=== PATIENT | male | born 1960 | race Caucasian/White ===

== ENCOUNTER 2017-06-03 06:24 | Day surgery (SDC) | payer BC ==
[2017-06-03] MEDS ORDERED: FAMOTIDINE 20 MG TAB PO ONE (06:28)
[2017-06-03] MEDS ORDERED: NS 1,000 ML IV ONE (06:28)
[2017-06-03] MEDS ORDERED: ASPIRIN EC 325 MG TAB PO ONE (06:28)
[2017-06-03] MEDS ORDERED: DIAZEPAM 5 MG TAB PO ONE (06:28)
[2017-06-03] MEDS ORDERED: diphenhydrAMINE 25 MG CAP PO ONE (06:28)
--- NOTE | 2017-06-03 06:41 | CPEKG ---
Heart Rate: 64 RR Interval: 938 P-R Interval: 212 QRSD Interval: 96 QT Interval: 420 QTC Interval: 434 P Milford: 50 QRS Milford: 14 T Wave Milford: 26 EKG Severity - ABNORMAL ECG - EKG Impression: SINUS RHYTHM EKG Impression: FIRST DEGREE AV BLOCK Electronically Signed By: Aris Monge 03-Jun-2017 12:21:48
[2017-06-03 06:57] LABS: % IMMATURE GRANULYOCYTES 0.3 % (0.0-1.1); ABSOLUTE IMMATURE GRANULOCYTES 0.02 10^3/uL (0.00-0.10); ADD DIFF? NO; ADD MORPH? NO; ADD SCAN? NO; ATYPICAL LYMPHOCYTE FLAG 10 (0-99); FRAGMENT RBC FLAG 0 (0-99); HEMATOCRIT 44.5 % (40.0-51.0); HEMOGLOBIN 15.1 g/dL (13.7-17.5); LEFT SHIFT FLG 0 (0-99); LIPEMIA HEMOLYSIS FLAG 90 (0-99); MEAN CELL HEMOGLOBIN 31.2 pg (27.9-34.1); MEAN CELL HEMOGLOBIN CONCENTR. 33.9 g/dL (32.4-36.7); MEAN CELL VOLUME 91.9 fL (81.5-99.8); MEAN PLATELET VOLUME 9.5 fL (8.7-11.7); PLATELET CLUMPS FLAG 0 (0-99); PLATELET COUNT 187 10^3/uL (150-400); RED BLOOD CELL COUNT 4.84 10^6/uL (4.40-6.38); RED CELL DISTRIBUTION WIDTH 12.3 % (11.5-15.2)
[2017-06-03 07:07] LABS: INR 0.95 (0.83-1.16); PROTIME(PATIENT) 12.6 SEC (12.0-15.0)
[2017-06-03 07:15] LABS: ANION GAP 13 mEq/L (8-16); CALCIUM 9.4 mg/dL (8.5-10.4); CARBON DIOXIDE 22 mEq/l (22-31); CHLORIDE 107 mEq/L (97-110); CHOLESTEROL 141 mg/dL (140-220); CHOLESTEROL/HDL RATIO 4.55 RATIO (1.00-4.97); CREATININE 0.9 mg/dL (0.7-1.3); GLOMERULAR FILTRATION RATE > 60; GLUCOSE 87 mg/dL (70-100); HIGH DENSITY LIPOPROTEIN 31 mg/dL (40-65); MAGNESIUM 1.9 mg/dL (1.6-2.3); NON-HIGH DENSITY LIPOPROTEIN 110 mg/dL (90-129); SODIUM 142 mEq/L (134-144)
[2017-06-03 07:16] LABS: TRIGLYCERIDE 459 mg/dL (40-150)
[2017-06-03] MEDS ORDERED: LIDOCAINE 1% 300 MG/30 ML SDV ONE (07:26)
[2017-06-03] MEDS ORDERED: fentaNYL 100 MCG/2 ML INJ ONE ×3 (07:27→09:25)
[2017-06-03] MEDS ORDERED: MIDAZOLAM 2 MG/2 ML VIAL ONE ×5 (07:28→09:27)
[2017-06-03] MEDS ORDERED: IOPAMIDOL (ISOVUE-370) 150 ML BTL IV ONE (07:28)
[2017-06-03] MEDS ORDERED: ADENOSINE 90 MG/30 ML VIAL IV ONE (09:15)
[2017-06-03] MEDS ORDERED: NITROGLYCERIN 1,500 MCG/15 ML VIAL MISC ONE (09:17)
[2017-06-03] MEDS ORDERED: HEPARIN 10,000 UNIT/10 ML MDV ONE (09:20)
[2017-06-03] MEDS ORDERED: BIVALIRUDIN 250 MG/5 ML VIAL IV ONE (09:20)
[2017-06-03] MEDS ORDERED: OXYCODONE/APAP 5/325 TAB PO PRN (09:26)
[2017-06-03] MEDS ORDERED: NITROGLYCERIN 0.4 MG BTL SL PRN (09:26)
[2017-06-03] MEDS ORDERED: ONDANSETRON 4 MG/2 ML VIAL IVP PRN (09:26)
[2017-06-03] MEDS ORDERED: ATROPINE SULFATE 1 MG/10 ML SYR IVP PRN (09:26)
[2017-06-03] MEDS ORDERED: HYDROCODONE/APAP 5/325 TAB PO PRN (09:26)
--- NOTE | 2017-06-03 10:38 | CPIP ---
[f rep st] INVASIVE CARDIAC PROCEDURE DATE OF PROCEDURE: 06/03/2017 INDICATIONS: The patient is a pleasant 57-year-old gentleman with a known history of coronary arter y disease with multiple PCIs to the LAD and residual 60% to 70% stenosis in the proximal right coron wilberto artery who presented to the office last week with complaints of shortness of breath, dyspnea on exertion, exertional intolerance and fatigue. He states these symptoms were identical to those prio r to his initial percutaneous coronary intervention to the LAD in 2007. He subsequently underwent a n exercise nuclear stress test. There was evidence of anterior ischemia. In the setting of having symptoms similar to his initial PCI, known history of in-stent stenosis to the LAD coupled with abno rmal nuclear stress test, the decision was made to pursue diagnostic left heart catheterization. PROCEDURE: After informed consent was obtained, the patient was brought to the cardiac catheterizat ion lab where he was prepped and draped in a sterile fashion. Please note, his last dose of Pradaxa was on Saturday evening, May 31, 2017. Using the modified Seldinger technique, a 6-Chadian catheter was placed into the right common femoral artery without complications. A JL5 catheter was used to t brunilda images of the left coronary anatomy in multiple projections. JL5 catheter was exchanged over a guidewire for a JR4 catheter. JR4 catheter was used to take images of the right coronary artery in multiple projections. JR4 catheter was removed over a guidewire for angled pigtail catheter. Angle d pigtail catheter was used to cross the aortic valve. LVEDP was assessed, aortic valve gradient wa s assessed, left ventriculogram was performed. Angled pigtail catheter was removed over a guidewire without complications. Imaging of the right co mmon femoral artery site demonstrated appropriate placement of the 6-Chadian sheath above the bifurca tion without evidence of trauma to the vessel. FINDINGS: 1. Left main normal size and caliber. There is no evidence of coronary disease in the left main. The left main trifurcates into a left circumflex coronary artery, ramus artery, and left anterior de scending. 2. Left anterior descending demonstrates stenting from the proximal LAD to the distal mid LAD. The re is some mild in-stent stenosis of approximately 10%. There is no flow-limiting stenosis within t he LAD. 3. Left circumflex demonstrates mild luminal irregularities. 4. Patel branch, mild lumen irregularities. No flow-limiting disease. 5. The right coronary artery is a large-caliber dominant vessel that bifurcates into PDA and PLV br anch. There is a 60% to 70% stenosis within the proximal to mid right coronary artery. There is so me 50% to 60% stenosis distally in the PDA branch. 6. Left ventriculogram demonstrates LVEF of 50% to 55%. LVEDP 21 mmHg. Aortic valve gradient: No ne. CONCLUSION: 1. Patent stents to the left anterior descending with minimal in-stent stenosis of approximately 10 %. 2. Mild luminal irregularities within the circumflex and ramus branch. 3. Dominant right coronary artery with 60% to 70% stenosis in the proximal segment of the vessel. The patient did undergo FFR with Dr. Lantigua with a value of 0.94 demonstrating no hemodynamic sign ificance and not indication for percutaneous coronary intervention. 4. Elevated left ventricular end-diastolic pressure at 21 mmHg. PLAN: 1. Patient will be brought to recovery. 2. Patient will continue aggressive medical management of coronary artery disease. 3. Patient is scheduled for back surgery this week with Dr. Gutierrez. He will remain off Prad axa until after his surgery. He will restart Pradaxa when hemodynamically stable from Dr. Jorge mariscal's perspective. /[id number]/MODL
--- NOTE | 2017-06-03 13:23 | CPIP ---
[f rep st] INVASIVE CARDIAC PROCEDURE DATE OF PROCEDURE: 06/03/2017 PROCEDURE PERFORMED: Fractional flow reserve measurement of the RCA. INDICATIONS FOR PROCEDURE: The patient is a 57-year-old male with a history of CAD and prior PCI of the LAD. He underwent a nuclear stress test as part of his preoperative evaluation for back surger y. That study suggested basal anterior wall ischemia. On that basis he was scheduled for a cardiac catheterization which was performed by Dr. Erick Birmingham. His angiography demonstrated that the previ ously stented LAD was widely patent. There was no significant stenosis in the circumflex territory. The right coronary artery had an angiographically moderate lesion of at least 50% in its midportio n. Therefore, Dr. Birmingham requested that I perform fractional flow reserve measurement to assess the s ignificance of this lesion. PROCEDURE IN DETAIL: The patient received 5000 units of intravenous heparin. A 6-Nauruan JR4 guide catheter was advanced to the right coronary ostium. The flow wire was advanced to the tip of the gu idewire and calibration was performed. The guide catheter was engaged into the right coronary and t he flow wire was advanced into the distal right coronary artery. Intravenous adenosine was administ ered per protocol. At 2 minutes, the fractional flow reserve was normal at 0.95. COMPLICATIONS: None. CONCLUSIONS: Normal fractional flow reserve measurement in the right coronary artery. /[id number]/MODL
== END 2017-06-03 16:56 | disposition home or self-care (01) ==
LOC: FCATH 06:24
PROVIDERS: ATTEND Internal Medicine Cardiovascular Disease
DX: I25.10 Atherosclerotic heart disease of native coronary artery without angina pectoris (principal); R06.09 Other forms of dyspnea; R53.83 Other fatigue; R94.39 Abnormal result of other cardiovascular function study; T82.855A Stenosis of coronary artery stent, initial encounter; G47.33 Obstructive sleep apnea (adult) (pediatric); I48.0 Paroxysmal atrial fibrillation; I10 Essential (primary) hypertension; I77.810 Thoracic aortic ectasia; E78.5 Hyperlipidemia, unspecified; M43.06 Spondylolysis, lumbar region; Z79.01 Long term (current) use of anticoagulants; Z99.89 Dependence on other enabling machines and devices
CPT/HCPCS: 93005; 93458; 93571; C1769; C1887; C1760; J0153; J0583; J1200; J1644; J2250; J3010; Q9967